=== PATIENT | female | born 1960 | race Caucasian/White ===

== ENCOUNTER 2016-05-13 18:43 | Emergency (ER) | payer OTHER ==
[~2016-05-13 18:43] MED LIST: FENOFIBRATE145 M1 PO; GLYBURIDE5 MG PO; HUMULIN N100 U/1 ML SC; HUMULIN R100 U/1 M1 SC; LEVOTHYROXIN0.075 M2 PO; METFORMIN ER500 M1 PO; NATURAL IRON65 MG PO; OMEPRAZOLE DR20 M1 PO; PRINIVIL10 MG PO
[2016-05-13 23:32] LABS: BASOPHIL % 0.5 % (0-2); PLATELET COUNT 188 x10^3mcL (130-400); RED CELL DISTRIBUTION WIDTH 14.3 % (11.5-14.5)
[2016-05-13 23:41] LABS: CARBON DIOXIDE 30.4 mmol/L (21-32); CHLORIDE SERUM 105 mmol/L (98-107); CREATININE SERUM 0.8 mg/dL (0.6-1.0); GFR1 > 60 mL/min; GLUCOSE SERUM 76 mg/dL (74-106); POTASSIUM SERUM 3.8 mmol/L (3.5-5.1); SODIUM SERUM 142 mmol/L (136-145)
[2016-05-13 23:46] LABS: ALBUMIN 3.6 g/dL (3.4-5.0); ALKALINE PHOSPHATASE 70 U/L (46-116); ALT/SGPT 19 U/L (14-59); AMYLASE 56 U/L (25-115); AST/SGOT 8 U/L (15-37); BILIRUBIN TOTAL 0.2 mg/dL (0.20-1.00); LIPASE 175 IU/L (73-393); TOTAL PROTEIN, SERUM 7.1 g/dL (6.4-8.2)
[2016-05-14 00:31] VITALS: BP 123/71
== END 2016-05-14 00:31 | disposition home or self-care (01) ==
LOC: ED 18:43
PROVIDERS: Emergency Medicine
DX: K80.50 Calculus of bile duct without cholangitis or cholecystitis without obstruction (principal); I10 Essential (primary) hypertension; E11.9 Type 2 diabetes mellitus without complications; Z87.19 Personal history of other diseases of the digestive system; Z79.84 Long term (current) use of oral hypoglycemic drugs
CPT/HCPCS: 83880; J1885